=== PATIENT | male | born 2000 | race Caucasian/White ===

== ENCOUNTER 2018-06-11 18:39 | Emergency (ER) | payer BC ==
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
[2018-06-11 20:13] VITALS: BP 134/70
== END 2018-06-11 20:14 | disposition home or self-care (01) ==
DX: S02.5XXA Fracture of tooth (traumatic), initial encounter for closed fracture (principal); V18.0XXA Pedal cycle driver injured in noncollision transport accident in nontraffic accident, initial encounter; Y92.480 Sidewalk as the place of occurrence of the external cause